=== PATIENT | female | born 1950 | race Two or more races ===

== ENCOUNTER 2024-02-11 19:00 | Emergency (ER) | payer MEDICARE, SELFPAY ==
[2024-02-11 19:00] VITALS: BMI 29.2
[2024-02-11 19:20] VITALS: BP 134/77; PULSE 93; RESP 18; TEMP 36.6; O2SAT 96
--- NOTE | 2024-02-11 19:30 | XR_ITS ---
Examination: Abdomen sonogram, Limited Date and time of exam: February 11, 2024 2027 hrs. Indications: Intermittent epigastric pain beginning 2 weeks ago Technique: Real-time lovelace scale transabdominal sonographic images of the upper abdomen obtained. Findings: Normal gallbladder Normal common bile duct 0.2 cm Pancreatic head 2.5 cm Liver 12.6 cm left lobe 9 x 8 x 10 mm hypoechoic lesion which may represent a cyst Normal hepatopedal portal venous flow Patent IVC Impression: Normal gallbladder Normal common bile duct Liver normal size with small probable liver cyst
--- NOTE | 2024-02-11 19:30 | XR_ITS ---
Examination: CT abdomen and pelvis without contrast. Coronal 3-D reconstructions. Sagittal 2-D reconstructions. Date and time of exam:February 11, 2024 2047 hrs. Indications: Upper abdominal pain nausea vomiting 2 weeks Comparison: 12/15/2023 CTDI: vol (mGy): 47 DLP: (mGycm): 447 Technique: Axial images of the abdomen have been obtained, 3 mm slice thickness Intravenous contrast material has not been administered. Low dose protocols were performed. One or more of the following dose reduction techniques were used; automated exposure control, adjustment of the mA and/or KV according to patient size, use of iterative reconstruction technique. Findings: Small liver cysts No gallstones Spleen not enlarged No pancreatic or adrenal mass No renal or ureteral calculi, no hydronephrosis Subcentimeter periaortic lymph nodes Aorta normal size No pericecal inflammatory change, normal appendix No bowel obstruction No bladder mass Absent uterus No pelvic mass Moderate osteopenia Impression: Negative for pancreatitis No renal or ureteral calculi, no hydronephrosis No CT findings of appendicitis bowel obstruction or diverticulitis
[2024-02-11 19:55] LABS: Basophils # (Auto) 0.1 Thou/mm3 (0.0-0.2); Basophils % (Auto) 1 % (0-2.5); Eosinophils # (Auto) 0.4 Thou/mm3 (0.0-0.5); Eosinophils % (Auto) 6 % (0-10); Hematocrit 38.3 % (36.0-46.0); Hemoglobin 12.7 g/dL (12.0-16.0); Immature Granulocytes % (Auto) 0 % (0-0); Immature Granulocytes Auto 0.01 Thou/mm3 (0.00-0.00); Lymphocytes # (Auto) 1.7 Thou/mm3 (1.0-4.8); Lymphocytes % (Auto) 27 % (10-50); Mean Corpuscular HGB Conc 33.2 g/dl (31.0-37.0); Mean Corpuscular Hemoglobin 29.6 pg (25.0-35.0); Mean Corpuscular Volume 89 fL (80-100); Monocytes # (Auto) 0.6 Thou/mm3 (0.0-0.8); Monocytes % (Auto) 9 % (0-12); Neutrophils # (Auto) 3.7 Thou/mm3 (1.8-7.7); Neutrophils % (Auto) 57 % (37-80); Nucleated Red Blood Cell % 0 /100 WBC (0); Platelet Count 273 Thou/mm3 (140-440); RDW Standard Deviation 43.9 fL (36.4-46.3); Red Blood Count 4.29 Miln/mm3 (4.00-5.20); White Blood Count 6.4 Thou/mm3 (3.6-11.0)
[2024-02-11] MEDS: FAMOTIDINE 20 MG TABLET 40 MG PO (19:58)
[2024-02-11] MEDS: ONDANSETRON ODT 4 MG TABRAP PO (19:58)
[2024-02-11] MEDS: PANTOPRAZOLE 40 MG TABLET PO (19:58)
[2024-02-11 20:13] LABS: Alanine Aminotransferase 24 U/L (10-49); Albumin, Serum 4.5 gm/dL (3.4-4.8); Anion Gap 6 (7-16); Aspartate Amino Transferase 28 U/L (0-34); BUN/Creatinine Ratio 16 Ratio (12-20); Bilirubin,Total 0.5 mg/dL (0.3-1.2); Blood Urea Nitrogen 16 mg/dL (9-23); Calcium 9.9 mg/dL (8.3-10.6); Carbon Dioxide 27.9 mMol/L (20.0-31.0); Chloride 102 mMol/L (98-107); Estimated Creatinine Clearance 49.3 mL/min (>60); Glucose 111 mg/dL (74-106); Magnesium 2.3 mg/dL (1.6-2.6); Osmolality,Calculated 274 (275-295); Potassium 4.8 mMol/L (3.4-5.1); Sodium 136 mMol/L (136-145); Total Protein 7.4 gm/dL (5.7-8.2); eGFR 60 See Note
[2024-02-11 20:14] LABS: Albumin/Globulin Ratio 1.6 (1.2-2.2); Alkaline Phosphatase 69 U/L (46-116); Amylase 104 U/L (30-118); Calcium (Corrected) 9.9 mg/dL (8.5-10.1); Globulin 2.9 gm/dL (2.3-3.5); Lipase 48 U/L (12-53)
[2024-02-11 20:21] LABS: Collection Type, Urine Clean Catch
[2024-02-11 20:31] LABS: Bilirubin,Urine Negative (Negative); Blood,Urine Negative (Negative); Clarity,Urine Clear (Clear/Hazy); Color,Urine Lt-Yellow (Lt Yel-Yel); Glucose, Urine Negative (Negative); Ketones,Urine Negative (Negative); Leukocyte Esterase,Urine Positive (Negative); Nitrite,Urine Negative (Negative); PH,Urine 7.5 (5.0-7.0); Protein,Urine Negative (Neg - Trace); RBC,Urine 1 /hpf (0-3); Specific Gravity,Urine 1.014 (1.001-1.035); Squamous Epithelial Cell,Urine 2 /hpf (0-5); Urobilinogen,Urine Negative mg/dL (0.0-1.0); WBC,Urine 9 /hpf (0-5)
--- NOTE | 2024-02-11 22:47 | EDNOTE_ITS ---
ED Abdominal Pain RME/HPI General Chief Complaint: Abdominal Pain Stated complaint: EPIGASTRIC PAIN X2 WEEKS Time seen by provider: 02/11/24 19:15 Arrival date/time: 02/11/24 19:00 RME / HPI RME / HPI narrative: This section includes all my notes and documentations, including HPI, PE, and ED course. Lui Cleaning MD HPI: 73-year-old female here with several days of epigastric tenderness. With nausea. No fever or chills. No urinary symptoms. No other complaints. ROS: Gastrointestinal: negative except as documented in HPI. Genitourinary: negative except as documented in HPI. Musculoskeletal: negative except as documented in HPI. Skin: negative except as documented in HPI. Neurological: negative except as documented in HPI. Physical Exam: General: Alert and oriented. No acute distress when remaining still. Eyes: Conjunctivae and lids clear. ENT: No nasal congestion. Neck: Supple. Heart: RRR. Lungs: No respiratory distress. Good air movement. No rhonchi, wheezing, rales. Abdomen: Soft with mild epigastric tenderness. Normal bowel sounds. No distension. No rebound or guarding. Back: No CVA tenderness. Skin: Warm and dry. Neuro: Alert and oriented X 3. I reviewed all diagnostic test results. My review of the abdominal CT report is no acute findings. My review of the GB ultrasound report is no acute findings. Blood tests and urine tests are unremarkable. At this point, diagnoses include GERD. Treatment here included Zofran and famotidine and Protonix. Significant improvement noted subjectively and objectively. Recommended more outpatient workup. Based on my best medical judgment, made decision no further evaluation or treatment indicated at this time. Patient understands and agrees to the discharge instructions customized and printed, see below. Discharge Instructions from Dr. Cleaning printed for you: 1. After extensive evaluation, there is no emergency such as appendicitis needing urgent surgery. 2. Your symptoms are due to GERD, see attached handout. 3. Zofran for nausea/vomiting. Take omeprazole every morning and famotidine every night for 7 days then as needed. 4. Avoid food and beverages that can trigger GERD, see attached handout. 5. See a private doctor on 02/13/2024 for recheck. Ask to review all test results and official radiology reports, to make sure you receive all necessary follow-ups and monitoring. To make sure there is no serious intra-abdominal condition, ask for help with more investigation not available here in the ER. Such as EGD or scoping the stomach, colonoscopy or scoping the colon, and referral to see gastro enterologist. 6. Seek immediate medical care with worsening or with any concerns. Lui Cleaning MD Related Data Previous Rx's ?Medication ?Instructions ?Recorded meclizine 25 mg tablet 25 mg PO QDAY PRN dizziness #10 01/19/22 tabs pantoprazole 40 mg tablet,delayed 40 mg PO QDAY #20 tabs 12/15/23 release (Protonix) meclizine 25 mg tablet 25 mg PO BID PRN dizziness #20 tabs 12/21/23 famotidine 40 mg tablet 40 mg PO QDAY #30 tabs 02/11/24 omeprazole 40 mg capsule,delayed 40 mg PO QDAY #30 caps 02/11/24 release ondansetron 4 mg disintegrating 4 mg PO TID PRN nausea and 02/11/24 tablet vomiting 5 days #10 tabs Allergies Allergy/AdvReac Type Severity Reaction Status Date / Time No Known Allergies Allergy Verified 02/11/24 19:03 Course Quality Measures none Orders Category Date Time Status CT abdomen pelvis wo con Stat Exams 02/11/24 19:30 Completed US gall bladder Stat Exams 02/11/24 19:30 Completed Amylase Stat Lab 02/11/24 19:42 Completed CBC Stat Lab 02/11/24 19:42 Completed CMP [Comprehensive Metabolic Panel] Stat Lab 02/11/24 19:42 Completed Lipase Stat Lab 02/11/24 19:42 Completed Magnesium Stat Lab 02/11/24 19:42 Completed UA [Urinalysis] Stat Lab 02/11/24 19:56 Completed Famotidine [Pepcid] Med 02/11/24 19:29 Discontinued 40 mg PO X1 ONE Ondansetron Odt [Zofran Odt] Med 02/11/24 19:29 Discontinued 4 mg PO X1 ONE Pantoprazole [Protonix] Med 02/11/24 19:29 Discontinued 40 mg PO X1 ONE Vital Signs Vital signs: Vital Signs Temperature 97.9 F 02/11/24 19:20 Pulse Rate 93 02/11/24 19:20 Respiratory Rate 18 02/11/24 19:20 Blood Pressure 134/77 H 02/11/24 19:20 Pulse Oximetry (%) 96 02/11/24 19:20 Oxygen Delivery Method Room Air 02/11/24 19:20 Abdominal Pain MDM Patient data External records reviewed:: [facility] previous records Clinical information provided by:: patient Social determinants that could affect healthcare access:: none Patient has the following chronic illnesses:: See chart How is presenting disease/condition affected by chronic disease/condition?: uneffected by Evaluation data The following diagnostics were reviewed and interpreted by me:: lab results and radiology exam(s) Lab and/or radiology exams considered but not ordered:: None Interpretation Summary: GERD Medications / Prescriptions Medications or Prescriptions considered but not ordered:: None Medication administrations:: Medication Administration History Discontinued Medications Famotidine (Famotidine 20 Mg Tablet) 40 mg PO X1 ONE Stop: 02/11/24 19:30 Last Admin: 02/11/24 19:58 Dose: 40 mg Documented By: Ondansetron HCl (Ondansetron Odt 4 Mg Tabrap) 4 mg PO X1 ONE; Protocol Stop: 02/11/24 19:30 Last Admin: 02/11/24 19:58 Dose: 4 mg Documented By: Pantoprazole Sodium (Pantoprazole 40 Mg Tablet) 40 mg PO X1 ONE Stop: 02/11/24 19:30 Last Admin: 02/11/24 19:58 Dose: 40 mg Documented By: Zofran and famotidine and Protonix Consultations Consultation(s) initiated? (list below): No Diagnosis Differential diagnosis abdominal pain: acute appendicitis, calculus of kidney, constipation, diverticulitis, gastroenteritis, pancreatitis and small bowel obstruction Most likely diagnosis given after review of the tests above:: GERD Admission Indicated Admission indicated?: not indicated Admission Request Was there a request for admission?: No Disposition Plan Disposition Plan: Discharge Discharge Attestation Discharge Attestation: The patient and all family members were given an opportunity to ask questions and understood the discharge instructions. Discharge instructions specifically effects, indications for sooner follow up or return to the emergency department, and the expected course of current diagnosis. Patient condition: Stable Discharge Plan Plan Patient Disposition: HOME (Self Care) Prescriptions/Referrals Prescriptions/Med Rec: New famotidine 40 mg tablet 40 mg PO QDAY Qty: 30 0RF omeprazole 40 mg capsule,delayed release(DR/EC) 40 mg PO QDAY Qty: 30 0RF ondansetron 4 mg tablet,disintegrating 4 mg PO TID PRN (Reason: nausea and vomiting) 5 Days Qty: 10 0RF No Action meclizine 25 mg tablet 25 mg PO QDAY PRN (Reason: dizziness) Qty: 10 0RF pantoprazole [Protonix] 40 mg tablet,delayed release (DR/EC) 40 mg PO QDAY Qty: 20 0RF meclizine 25 mg tablet 25 mg PO BID PRN (Reason: dizziness) Qty: 20 0RF Referrals: Tamica Dave PA-C [Primary Care Provider] - In 1 week Problem List Clinical Impression: GERD (gastroesophageal reflux disease) Patient/Caregiver Discharge Instructions Discharge Activity: activity as tolerated Education Materials: ED GERD (Adult) Additional Instructions: Discharge Instructions from Dr. Cleaning printed for you: 1. After extensive evaluation, there is no emergency such as appendicitis needing urgent surgery. 2. Your symptoms are due to GERD, see attached handout. 3. Zofran for nausea/vomiting. Take omeprazole every morning and famotidine every night for 7 days then as needed. 4. Avoid food and beverages that can trigger GERD, see attached handout. 5. See a private doctor on 02/13/2024 for recheck. Ask to review all test results and official radiology reports, to make sure you receive all necessary follow-ups and monitoring. To make sure there is no serious intra-abdominal condition, ask for help with more investigation not available here in the ER. Such as EGD or scoping the stomach, colonoscopy or scoping the colon, and referral to see proposal editor. 6. Seek immediate medical care with worsening or with any concerns. Print Language: Upper Sorbian Stand Alone Forms: Christi Award Info., Patient Portal Info Letter
[2024-02-11 22:55] VITALS: BP 125/68; PULSE 78; RESP 19; TEMP 36.6; O2SAT 99
== END 2024-02-11 22:55 | disposition home or self-care (01) ==
PROVIDERS: Emergency Provider Emergency Medicine; PCP Physician Assistant
DX: K21.9 Gastro-esophageal reflux disease without esophagitis (principal)
CPT/HCPCS: 36415; 74176; 76705; 80053; 81001; 82150; 83690; 83735; 85025; 99284; Q0162; A9270

== ENCOUNTER 2024-08-16 18:33 | Emergency (ER) | payer MEDICARE, SELFPAY ==
[2024-08-16 19:48] VITALS: BP 186/96; PULSE 84; RESP 15; TEMP 36.7; O2SAT 98
--- NOTE | 2024-08-16 20:06 | XR_ITS ---
Examination: CT brain head without contrast. 2-D sagittal coronal reconstructions Date and time of exam:August 16, 2024, 2109 hours INDICATIONS: Patient fell today with injury to the head, head pain CTDI: vol (mGy):46 DLP: (mGycm):9:15 Technique: Multiple CT axial sections of the brain have been obtained, 5 mm slice thickness. Contrast has not been administered. 2-D sagittal, coronal reconstructions have been obtained Low dose protocols were performed. One or more of the following dose reduction techniques were used; automated exposure control, adjustment of the mA and/or KV according to patient size, use of iterative reconstruction technique. Findings: No significant ventricular enlargement. Intra-axial or extra-axial hemorrhage density is not seen. No mass effect or midline shift Basal cisterns are not remarkable. Fourth ventricle is midline. Cranial vault intact. Posterior left parietal scalp swelling Impression: Negative for acute hemorrhage, mass effect or midline shift
--- NOTE | 2024-08-16 20:06 | XR_ITS ---
Examination: CT cervical spine without contrast 2-D sagittal reconstructions 2-D coronal reconstructions 3-D reconstructions. Exam date and time:August 16, 2024 2110 hours INDICATIONS: Patient fell today with injury of the neck, neck pain CTDI:vol (mGy) 8.6 DLP: (mGycm) 109 Technique: Multiple 2 mm axial sections of the cervical spine have been obtained. The coronal and sagittal reconstructions have been obtained. 3-D reconstructions have been obtained. Low dose protocols were performed. One or more of the following dose reduction techniques were used; automated exposure control, adjustment of the mA and/or KV according to patient size, use of iterative reconstruction technique. Findings: Axial sections demonstrate intact base of the skull. C1 exhibit satisfactory relationship to the odontoid. No acute cervical vertebral body fracture seen. Alignment posterior spinous processes satisfactory. Impression: No acute cervical fracture.
--- NOTE | 2024-08-16 20:07 | PD.EDFALL ---
ED Fall Injury RME/HPI General Chief Complaint: Fall Stated Complaint: Fall with pain in back and head Time Seen by Provider: 08/16/24 18:42 Arrival date/time: 08/16/24 18:33 RME / HPI RME / HPI Narrative: 73-year-old female patient was brought in for evaluation regarding ground-level fall. Patient was opening a refrigerator, and lost control and landed on the floor concrete floor/hard floor, patient sustained contusion hematoma to the occipital area. Patient also complained of neck pain. Patient told me that he gets dizzy for 2 minutes. No vomiting no LOC patient is ambulatory denies any other injury patient is not taking any blood thinner. Related Data Previous Rx's ?Medication ?Instructions ?Recorded meclizine 25 mg tablet 25 mg PO QDAY PRN dizziness #10 01/19/22 tabs pantoprazole 40 mg tablet,delayed 40 mg PO QDAY #20 tabs 12/15/23 release (Protonix) meclizine 25 mg tablet 25 mg PO BID PRN dizziness #20 tabs 12/21/23 famotidine 40 mg tablet 40 mg PO QDAY #30 tabs 02/11/24 omeprazole 40 mg capsule,delayed 40 mg PO QDAY #30 caps 02/11/24 release Allergies Allergy/AdvReac Type Severity Reaction Status Date / Time sulfamethoxazole (From Allergy Verified 08/16/24 18:39 ) trimethoprim (From ) Allergy Verified 08/16/24 18:39 Review of Systems Review of Systems Narrative Review of Systems: Review of system reviewed and within normal limits except mentioned in HPI ED Exam Narrative Physical exam: VITAL SIGNS: Reviewed. GENERAL APPEARANCE: Alert and interactive, follows commands, no acute distress, HEAD AND FACE: 5 x 6 cm contusion hematoma, left occipital area with tenderness ENT: PERRL, pink conjunctivitis, eyelid no trauma, Mucous membrane moist. NECK: Supple, posterior neck tenderness, no nuchal rigidity. CHEST: No tenderness, no crepitus, no paradoxical movement, no retractions. LUNGS: Clear, well ventilated, symmetric, no rales, no wheezing, no ronchi, no stridor, good breath sounds bilaterally. HEART: Regular rate, regular rhythm, no murmur, no gallops. ABDOMEN: Soft, positive bowel sounds, nondistended, no guarding, nontender, no rebound, no masses, RECTAL: Deferred. GENITAL: Deferred. NEUROLOGICAL: Gross motor function intact sensory function intact, Appropriate for age. MUSCULOSKELETAL: low back nontender, full range of motion. EXTREMITIES: Nontender, full range of motion. SKIN: Color pink, dry, no rash, no lacerations, no abrasions, no contusions. LYMPHATICS: Deferred. Course Quality Measures none Orders Category Date Time Status CT cervical spine wo con Stat Exams 08/16/24 20:[address] head/brain wo con Stat Exams 08/16/24 20:06 Completed Acetaminophen Tab [Tylenol ES Tab] Med 08/16/24 20:06 Discontinued 500 mg PO X1 ONE Vital Signs Vital signs: Vital Signs Temperature 98.1 F 08/16/24 19:48 Pulse Rate 84 08/16/24 19:48 Respiratory Rate 15 08/16/24 19:48 Blood Pressure 186/96 H 08/16/24 19:48 Pulse Oximetry (%) 98 08/16/24 19:48 Oxygen Delivery Method Room Air 08/16/24 19:48 Fall MDM Narrative [facility] Narrative:: 73-year-old female patient was brought in for evaluation regarding ground-level fall. Patient was opening a refrigerator, and lost control and landed on the floor concrete floor/hard floor, patient sustained contusion hematoma to the occipital area. Patient also complained of neck pain. Patient told me that he gets dizzy for 2 minutes. No vomiting no LOC patient is ambulatory denies any other injury patient is not taking any blood thinner. CT scan of the neck came back unremarkable CT scan of the head came back unremarkable. Results discussed with the patient Patient appears nontoxic and hemodynamically stable .Decision to discharge the patient. The patient/family was given an opportunity to ask questions and understood their discharge instructions. Discharge instructions specifically included follow up provider and time frame Patient reports feeling better as well and giving evidence of significant clinical improvement, I believe patient is now a candidate for discharge. Patient data External records reviewed:: None Clinical information provided by:: patient Social determinants that could affect healthcare access:: none Patient has the following chronic illnesses:: None How is presenting disease/condition affected by chronic disease/condition?: exacerbated by Evaluation data The following diagnostics were reviewed and interpreted by me:: radiology exam(s) Lab and/or radiology exams considered but not ordered:: None Interpretation Summary: See results [facility] Medications / Prescriptions Medications or Prescriptions considered but not ordered:: 9 Medication administrations:: Medication Administration History Discontinued Medications Acetaminophen (Acetaminophen 500 Mg Tablet) 500 mg PO X1 ONE Stop: 08/16/24 20:07 Last Admin: 08/16/24 22:37 Dose: 500 mg Documented By: Tylenol Consultations Consultation(s) initiated? (list below): No Diagnosis Fall Differential Diagnosis: other (Fall, scalp contusion, neck pain) Most likely diagnosis given after review of the tests above:: Fall, scalp contusion Admission Indicated Admission indicated?: not indicated Admission Request Was there a request for admission?: No Disposition Plan Disposition Plan: Discharge Discharge Attestation Discharge Attestation: The patient was given an opportunity to ask questions and understood the discharge instructions. Discharge instructions specifically effects, indications for sooner follow up or return to the emergency department, and the expected course of current diagnosis. Patient condition: Stable Discharge Plan Plan Patient Disposition: HOME (Self Care) Discharge Disposition comment: Stable Prescriptions/Referrals Prescriptions/Med Rec: No Action meclizine 25 mg tablet 25 mg PO QDAY PRN (Reason: dizziness) Qty: 10 0RF pantoprazole [Protonix] 40 mg tablet,delayed release (DR/EC) 40 mg PO QDAY Qty: 20 0RF meclizine 25 mg tablet 25 mg PO BID PRN (Reason: dizziness) Qty: 20 0RF famotidine 40 mg tablet 40 mg PO QDAY Qty: 30 0RF omeprazole 40 mg capsule,delayed release(DR/EC) 40 mg PO QDAY Qty: 30 0RF Referrals: Tamica Dave PA-C [Primary Care Provider] - In 1 week Problem List Clinical Impression: Contusion of scalp, Fall Patient/Caregiver Discharge Instructions Discharge Activity: activity as tolerated Education Materials: ED Scalp Contusion Additional Instructions: Thank you for the opportunity for serving you today. You are stable for discharged . You are advised to: Follow-up with your PCP in 1 to 2 days Return to ED for worsening of symptoms Increase oral fluids Apply ice for 15 minutes 3 times a day as needed you may take Tylenol as needed for pain Print Language: Sinhala Stand Alone Forms: Christi Award Info., Patient Portal Info Letter JUD Supervising Physician JUD Supervising Physician: MD Hermila
[2024-08-16] MEDS: ACETAMINOPHEN 500 MG TABLET PO (22:37)
== END 2024-08-16 23:36 | disposition home or self-care (01) ==
PROVIDERS: Emergency Provider Internal Medicine Rheumatology; PCP Physician Assistant
DX: S00.03XA Contusion of scalp, initial encounter (principal); W18.30XA Fall on same level, unspecified, initial encounter; M54.2 Cervicalgia
CPT/HCPCS: 70450; 72125; 99284; A9270